=== PATIENT | female | born 1995 | race Caucasian/White ===

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

== ENCOUNTER 2022-04-30 10:55 | Emergency (ER) | payer BC ==
[~2022-04-30] VITALS: Ht 167.7 cm; Wt 164.5 kg
[2022-04-30] MEDS ORDERED: KETOROLAC 30 MG/ML VIAL IVP ONE (11:30)
[2022-04-30] MEDS ORDERED: NS IV 1000 ML 1,000 ML IV SCH (11:30)
--- NOTE | 2022-04-30 11:39 | ED Abdominal Pain ---
General Chief Complaint: Abdominal/GI Problems Stated Complaint: STOMACH ISSUES | CRAMPING Nursing Triage Note: PT AMB TO ED BY POV WITH C/O LOWER AND L SIDED ABD PAIN X 4 DAYS, DIARRHEA X 2 DAYS. DENIES N/V OR FEVER. PT HAS NOT TAKEN ANYTHING FOR THE PAIN. Source of Information: Patient Exam Limitations: No Limitations History of Present Illness Date Seen by Provider: Apr 30, 2022 Time Seen by Provider: 11:19 Initial Comments 26-year-old female presents with complaints left lower quadrant abdominal pain. States pain radiates upward to left upper quadrant. States pain started on 04/26 but became worse yesterday. Reports diarrhea yesterday and last night, states going approximately every 2 hours during the night. Reports some burning with urination but thinks that is related to the excessive diarrhea. Denies vaginal bleeding/discharge. Reports nausea yesterday, denies vomiting. Patient has an IUD placed, last menstrual period was March 2020. Patient states abnormal periods prior to IUD placed. States they did not figure out why she had abnormal periods before the IUD was placed. Patient noted to have facial hair and is obese, patient denies diagnosis of PCOS. Patient states she used to take metformin but is not on it currently. Timing/Duration: 3-4 Days Severity/Quality: Moderate Location: LLQ Radiation: LUQ Allergies and Home Medications Allergies Coded Allergies: No Known Drug Allergies (Unverified , 04/18/15) Patient Home Medication List Home Medication List Reviewed: Yes Norgestimate-Ethinyl Estradiol (Sprintec 28 Day Tablet) 1 Each Tablet, (Reported) Entered as Reported by: KIMBERLEY MANCINI on 04/18/15 7359 Review of Systems Review of Systems Constitutional: No chills, No fever Respiratory: No Symptoms Reported Cardiovascular: No Symptoms Reported Gastrointestinal: Abdominal Pain, Diarrhea, Nausea (yesterday); Denies Vomiting Genitourinary: Burning Past Mbzjbob-Qngpyc-Yuipvi Hx Patient Social History Tobacco Use?: No Use of E-Cig and/or Vaping dev: No Substance use?: No Alcohol Use?: Yes Alcohol Frequency: Several times a month Pt feels they are or have been: No Immunizations Up To Date PED Vaccines UTD: Yes Influenza Vaccine Up-to-Date: No; Not Current First/Initial COVID19 Vaccinat: 2020 Second COVID19 Vaccination Betito: 2020 Third COVID19 Vaccination Date: 2021 COVID19 Vaccine Senior Business Development Manager: CARLIETosha Past Medical History Reproductive Disorders: No Sexually Transmitted Disease: No Physical Exam Vital Signs Vital Signs - First Documented 04/30/22 11:10 Temp 36.1 Pulse 115 Resp 22 B/P (MAP) 177/122 (140) Pulse Ox 98 O2 Delivery Room Air Capillary Refill : Less Than 3 Seconds Height/Weight/BMI Height: 5'5" Weight: 270lbs. 2oz. 122.254257np; 58.00 BMI Method:Stated General Appearance: WD/WN, mild distress Neck: supple, normal inspection Respiratory: lungs clear, normal breath sounds, no respiratory distress, no accessory muscle use Cardiovascular: no edema, no gallop, no JVD, no murmur, tachycardia Gastrointestinal: normal bowel sounds, soft, tenderness (LLQ) Extremities: normal range of motion, normal inspection Neurologic/Psychiatric: alert, normal mood/affect, oriented x 3 Skin: normal color, warm/dry Progress/Results/Core Measures Results/Orders Lab Results Laboratory Tests Test 04/30/22 11:46 04/30/22 13:58 Range/Units White Blood Count 8.1 4.3-11.0 10^3/uL Red Blood Count 5.54 H 3.80-5.11 10^6/uL Hemoglobin 15.2 11.5-16.0 g/dL Hematocrit 45 35-52 % Mean Corpuscular Volume 82 80-99 fL Mean Corpuscular Hemoglobin 27 25-34 pg Mean Corpuscular Hemoglobin Concent 34 32-36 g/dL Red Cell Distribution Width 12.6 10.0-14.5 % Platelet Count 222 130-400 10^3/uL Mean Platelet Volume 10.7 9.0-12.2 fL Immature Granulocyte % (Auto) 0 % Neutrophils (%) (Auto) 76 H 42-75 % Lymphocytes (%) (Auto) 19 12-44 % Monocytes (%) (Auto) 4 0-12 % Eosinophils (%) (Auto) 0 0-10 % Basophils (%) (Auto) 0 0-10 % Neutrophils # (Auto) 6.2 1.8-7.8 10^3/uL Lymphocytes # (Auto) 1.5 1.0-4.0 10^3/uL Monocytes # (Auto) 0.4 0.0-1.0 10^3/uL Eosinophils # (Auto) 0.0 0.0-0.3 10^3/uL Basophils # (Auto) 0.0 0.0-0.1 10^3/uL Immature Granulocyte # (Auto) 0.0 0.0-0.1 10^3/uL Percent Immature Platelet Fraction 5.9 0.0-7.6 % Sodium Level 137 135-145 MMOL/L Potassium Level 3.2 L 3.6-5.0 MMOL/L Chloride Level 104 98-107 MMOL/L Carbon Dioxide Level 21 21-32 MMOL/L Anion Gap 12 5-14 MMOL/L Blood Urea Nitrogen 14 7-18 MG/DL Creatinine 1.19 0.60-1.30 MG/DL Estimat Glomerular Filtration Rate 65 BUN/Creatinine Ratio 12 Glucose Level 113 H 70-105 MG/DL Calcium Level 9.2 8.5-10.1 MG/DL Corrected Calcium 9.0 8.5-10.1 MG/DL Total Bilirubin 0.6 0.1-1.0 MG/DL Aspartate Amino Transf (AST/SGOT) 34 5-34 U/L Alanine Aminotransferase (ALT/SGPT) 42 0-55 U/L Alkaline Phosphatase 89 40-136 U/L Total Protein 7.7 6.4-8.2 GM/DL Albumin 4.2 3.2-4.5 GM/DL Lipase 13 8-78 U/L Smear Scan YES Urine Color YELLOW Urine Clarity CLOUDY Urine pH 6.5 5-9 Urine Specific Broussard 1.010 L 1.016-1.022 Urine Protein TRACE H NEGATIVE Urine Glucose (UA) NEGATIVE NEGATIVE Urine Ketones NEGATIVE NEGATIVE Urine Nitrite NEGATIVE NEGATIVE Urine Bilirubin NEGATIVE NEGATIVE Urine Urobilinogen 1.0 < = 1.0 MG/DL Urine Leukocyte Esterase NEGATIVE NEGATIVE Urine RBC (Auto) 3+ H NEGATIVE Urine RBC 25-50 H /HPF Urine WBC 0-2 /HPF Urine Squamous Epithelial Cells 10-25 H /HPF Urine Crystals PRESENT H /LPF Urine Amorphous Sediment FEW NAZ URATES H /LPF Urine Bacteria MODERATE H /HPF Urine Casts NONE /LPF Urine Mucus NEGATIVE /LPF Urine Culture Indicated YES My Orders Orders - KATIE ELAM R [employer] Ua Culture If Indicated (04/30/22 11:12) Urine Dip-Bedside (04/30/22 11:12) Comprehensive Metabolic Panel (04/30/22 11:29) Lipase (04/30/22 11:29) Ed Iv/Invasive Line Start (04/30/22 11:29) Cbc With Automated Diff (04/30/22 11:29) Ct Abdomen/Pelvis W (04/30/22 11:29) Ketorolac Injection (Toradol Injection) (04/30/22 11:30) Ed Iv/Invasive Line Start (04/30/22 11:29) Ns Iv 1000 Ml (Sodium Chloride 0.9%) (04/30/22 11:30) Iohexol Injection (Omnipaque 350 Mg/Ml 1 (04/30/22 11:45) Received Contrast (Hold Metformin- Contr (04/30/22 11:45) Ns (Ivpb) (Sodium Chloride 0.9% Ivpb Bag (04/30/22 11:45) Fecal Wbc (04/30/22 11:40) Parasite Scrn Stool Giard Cryp (04/30/22 11:40) Occult Blood Stool (04/30/22 11:40) Stool Culture (04/30/22 11:40) Potassium Chloride (Tablet) (K Dur Table (04/30/22 13:30) Urine Culture (04/30/22 13:58) Medications Given in ED Current Medications Medications Dose Ordered Sig/Maru Route Start Time Stop Time Status Last Admin Dose Admin Iohexol 100 ml ONCE ONCE IV 04/30/22 11:45 04/30/22 11:46 DC 04/30/22 12:25 80 ML Ketorolac Tromethamine 15 mg ONCE ONCE IVP 04/30/22 11:30 04/30/22 11:34 DC 04/30/22 11:51 15 MG Sodium Chloride 100 ml ONCE ONCE IV 04/30/22 11:45 04/30/22 11:46 DC 04/30/22 12:25 80 ML Vital Signs/I&O 04/30/22 11:10 Temp 36.1 Pulse 115 Resp 22 B/P (MAP) 177/122 (140) Pulse Ox 98 O2 Delivery Room Air Blood Pressure Mean: 140 Progress Progress Note #1: Time: 11:30 Progress Note Patient seen and evaluated. Concern for diverticulitis or colitis. Abdominal pain work-up initiated, CBC, CMP, lipase, UA, CT abdomen pelvis ordered. IV fluids and Toradol ordered. Progress Note #2: Time: 13:50 Progress Note Discussed test results with patient. She has no concerning findings at this time. Asked for urine sample since patient has not been able to get one yet. Discussed doing a outpatient lab for stool studies. Progress Note #3: Time: 14:03 Progress Note Discussed results with patient. Informed patient that Dr. Mendoza would like to have a HIDA scan which will not be able to be completed until 4 or 5 PM. Patient verbalized understanding. Patient informed to let nursing staff know if she needs pain medicine. Progress Note #4: Time: 14:39 Progress Note Discussed urine results with patient. Moderate amount of red blood cells noted in urine. Discussed this with patient and instructed her to follow-up with her primary care for a repeat urinalysis. Discussed doing an outpatient stool sample with patient. She states that she thinks that she is doing okay and does not think that she needs to do the stool sample. Discussed return precautions with patient. Diagnostic Imaging Diagonstic Imaging: CT Plain Films/CT/US/NM/MRI: abdomen Comments Date of Exam:04/30/22 CT ABDOMEN/PELVIS W PROCEDURE: CT abdomen and pelvis with contrast. TECHNIQUE: Multiple contiguous axial images were obtained through the abdomen and pelvis after administration of intravenous contrast. Auto Exposure Controls were utilized during the CT exam to meet ALARA standards for radiation dose reduction. All CT scans use one or more of the following dose optimizing techniques: automated exposure control, MA and/or KvP adjustment based on patient size and exam type or iterative reconstruction. INDICATION: Lower and left-sided abdominal pain for 4 days as well as diarrhea. COMPARISON: No prior studies are available for comparison. FINDINGS: The lung bases are clear. The liver demonstrates diffuse low attenuation, consistent with hepatic steatosis. No liver mass is identified. The gallbladder is unremarkable. There is no biliary ductal dilatation. The pancreas and spleen are unremarkable. No adrenal mass is identified. The kidneys are unremarkable. The aorta is nonaneurysmal. The bowel loops are of normal caliber. There is no obstruction. There is no free fluid or fluid collection identified. The uterus contains an IUD. The bladder is decompressed. The bony structures are nonacute. IMPRESSION: 1. Hepatic steatosis. 2. No acute feature in the abdomen or pelvis is identified. Dictated on workstation # [id number] Dict: 04/30/22 1232 Trans: 12/28/22 1246 [id number] Interpreted by: RODRICK BROWNE MD Electronically signed by: Departure Impression Primary Impression: Abdominal pain Disposition: 01 HOME, SELF-CARE Condition: Stable Departure-Patient Inst. Decision time for Depature: 14:41 Referrals: KARENA FIELD MD (PCP/Family) Primary Care Physician Patient Instructions: Abdominal Pain, Adult ED Add. Discharge Instructions: Urinalysis showed moderate amount of red blood cells. Follow-up with primary care provider for repeat urinalysis. Return for any new or concerning symptoms, uncontrolled vomiting, increased diarrhea, pain with urination or difficulty urinating. All discharge instructions reviewed with patient and/or family. Voiced understanding. KATIE ELAM [employer] COUNSELOR Apr 30, 2022 11:39
[2022-04-30] MEDS ORDERED: IOHEXOL 350 MG/ML 100 ML (OMNIPAQUE 350) VIAL IV ONE (11:45)
[2022-04-30] MEDS ORDERED: HOLD METFORMIN - RECEIVED CONTRAST 20 ML VIAL IV SCH (11:45)
[2022-04-30] MEDS ORDERED: NS 100 ML (IVPB) BAG IV ONE (11:45)
[2022-04-30 11:51] LABS: MEAN CORPUSCULAR VOLUME 82 fL (80-99)
[2022-04-30 11:53] LABS: BASOPHILS % (AUTO) 0 % (0-10); EOSINOPHILS % (AUTO) 0 % (0-10); HEMATOCRIT 45 % (35-52); HEMOGLOBIN 15.2 g/dL (11.5-16.0); LYMPHOCYTES # (AUTO) 1.5 10^3/uL (1.0-4.0); LYMPHOCYTES % (AUTO) 19 % (12-44); MEAN CORPUSCULAR HEMOGLOBIN 27 pg (25-34); MEAN CORPUSCULAR HGB CONC 34 g/dL (32-36); MEAN PLATELET VOLUME 10.7 fL (9.0-12.2); MONOCYTES # (AUTO) 0.4 10^3/uL (0.0-1.0); MONOCYTES % (AUTO) 4 % (0-12); NEUTROPHILS # (AUTO) 6.2 10^3/uL (1.8-7.8); NEUTROPHILS % (AUTO) 76 % (42-75); PLATELET COUNT 222 10^3/uL (130-400); WHITE BLOOD COUNT 8.1 10^3/uL (4.3-11.0)
[2022-04-30 11:54] LABS: SMEAR SCAN COMMENT YES
[2022-04-30 12:02] LABS: ALBUMIN 4.2 GM/DL (3.2-4.5); POTASSIUM 3.2 MMOL/L (3.6-5.0)
[2022-04-30 12:03] LABS: CALCIUM 9.2 MG/DL (8.5-10.1)
[2022-04-30 12:05] LABS: TOTAL PROTEIN 7.7 GM/DL (6.4-8.2)
[2022-04-30 12:06] LABS: BILIRUBIN,TOTAL 0.6 MG/DL (0.1-1.0)
[2022-04-30 12:08] LABS: CREATININE SERUM 1.19 MG/DL (0.60-1.30)
--- NOTE | 2022-04-30 12:47 | Diagnostic Imaging Report ---
PROCEDURE: CT abdomen and pelvis with contrast. TECHNIQUE: Multiple contiguous axial images were obtained through the abdomen and pelvis after administration of intravenous contrast. Auto Exposure Controls were utilized during the CT exam to meet ALARA standards for radiation dose reduction. All CT scans use one or more of the following dose optimizing techniques: automated exposure control, MA and/or KvP adjustment based on patient size and exam type or iterative reconstruction. INDICATION: Lower and left-sided abdominal pain for 4 days as well as diarrhea. COMPARISON: No prior studies are available for comparison. FINDINGS: The lung bases are clear. The liver demonstrates diffuse low attenuation, consistent with hepatic steatosis. No liver mass is identified. The gallbladder is unremarkable. There is no biliary ductal dilatation. The pancreas and spleen are unremarkable. No adrenal mass is identified. The kidneys are unremarkable. The aorta is nonaneurysmal. The bowel loops are of normal caliber. There is no obstruction. There is no free fluid or fluid collection identified. The uterus contains an IUD. The bladder is decompressed. The bony structures are nonacute. IMPRESSION: 1. Hepatic steatosis. 2. No acute feature in the abdomen or pelvis is identified. Dictated by: Dictated on workstation # [id number]
[2022-04-30] MEDS ORDERED: KCL 20 MEQ TAB (K-DUR) PO ONE (13:30)
[2022-04-30 14:06] LABS: BILIRUBIN,URINE NEGATIVE (NEGATIVE); CLARITY,URINE CLOUDY; COLOR,URINE YELLOW; GLUCOSE, URINE (UA) NEGATIVE (NEGATIVE); KETONES,URINE NEGATIVE (NEGATIVE); LEUKOCYTE ESTERASE ,URINE NEGATIVE (NEGATIVE); NITRITE,URINE NEGATIVE (NEGATIVE); PH,URINE 6.5 (5-9); PROTEIN,URINE TRACE (NEGATIVE)
[2022-04-30 14:14] LABS: AMORPHOUS SEDIMENT,UR FEW AMOR URATES /LPF; BACTERIA,URINE MODERATE /HPF; RBC,URINE 25-50 /HPF; WBC,URINE 0-2 /HPF
[2022-04-30 14:53] VITALS: BP 152/104
== END 2022-04-30 14:53 | disposition home or self-care (01) ==
LOC: EDUNIT# 10:55 → ER 10:59
DX: R10.32 Left lower quadrant pain (principal); R19.7 Diarrhea, unspecified
CPT/HCPCS: 36415; 74177; 80053; 81000; 83690; 85025; 87088